=== PATIENT | female | born 1975 | race Caucasian/White ===

== ENCOUNTER 2017-09-25 13:04 | Emergency (ER) | payer OTHER ==
[~2017-09-25] VITALS: Ht 157.4 cm; Wt 81.6 kg
[~2017-09-25 13:04] MED LIST: AMOXICILLIN500 MG PO; ATIVAN1 MG PO; BUSPAR10 MG PO; CIPROFLOXACIN500 MG PO; COLACE100 MG PO; DIFLUCAN150 MG PO; FLAGYL500 MG PO; FLEXERIL10 MG PO; LAMICTAL25 MG PO; LEVAQUIN750 MG PO; NAPROSYN500 MG PO; NKHM; NORCO 325 MG-51 TAB PO; PENICILLIN VK500 MG PO; PREDNICOT20 MG PO; PRILOSEC20 MG PO; TESSALON PERLE200 MG PO; TRAMADOL HCL50 MG PO; ULTRAM50 MG PO; VALIUM10 MG PO; VICODIN 5/500 505 MG PO; VICODIN 500 MG-1 TAB PO; VICODIN ES 7501 TAB PO; VISTARIL50 MG PO; ZYRTEC10 MG PO
[2017-09-25 13:10] VITALS: BP 154/81
[2017-09-25] MEDS ORDERED: AMOXICILLIN500 M2 PO (13:59)
[2017-09-25] MEDS ORDERED: NAPROSYN500 MG PO (13:59)
== END 2017-09-25 14:47 | disposition home or self-care (01) ==
LOC: ED 13:04
DX: K08.89 Other specified disorders of teeth and supporting structures (principal); F17.200 Nicotine dependence, unspecified, uncomplicated

== ENCOUNTER 2018-02-11 19:47 | Emergency (ER) | payer OTHER ==
[~2018-02-11] VITALS: Ht 152.4 cm; Wt 73.0 kg
[~2018-02-11 19:47] MED LIST changes: +AMOXICILLIN500 M2 PO
[2018-02-11 19:50] VITALS: BP 118/53
== END 2018-02-11 21:47 | disposition home or self-care (01) ==
LOC: ED 19:47
DX: M79.671 Pain in right foot (principal); F17.200 Nicotine dependence, unspecified, uncomplicated; Z79.899 Other long term (current) drug therapy

== ENCOUNTER 2018-08-23 08:54 | Emergency (ER) | payer OTHER ==
[~2018-08-23] VITALS: Ht 152.4 cm; Wt 72.6 kg
--- NOTE | ~2018-08-23 | EKG ---
[place], [place] ELECTROCARDIOGRAM REPORT NAME: JEFF QUINTANILLA UNIT #: [id number] ROOM: DOCTOR: EPIPHANY DRAFT REPORT BIRTHDATE: [birth year] [facility] Test Date: 2018-08-23 Test Time: 09:21:46 Pat Name: JEFF QUINTANILLA Department: Room: Gender: F Reporting Analyst: Soledad Herbert : 1975 Requested By: WALT GAO DNP Order Number: [id number] Reading MD: Greg Cherry MD Measurements Intervals [place] Rate: 66 P: 10 OK: 150 QRS: -21 QRSD: 89 T: -18 QT: 407 QTc: 427 Interpretive Statements Sinus rhythm Inferior infarct, age indeterminate Baseline wander in lead(s) V2 Electronically Signed On 08-23-2018 11:26:59 PST by Greg Cherry MD CM:EKGRPT:ELECTROCARDIOGRAM REPORT [id number] WALT GAO DNP EPIPHANY DRAFT REPORT WALT GAO DNP
[2018-08-23 09:30] LABS: BASO % 0.1 % (0.0-1.0); EOS # 0.1 10*3/uL (0.0-0.4); EOS % 0.6 % (1.0-4.0); HEMATOCRIT 44.9 % (37.0-47.0); HEMOGLOBIN 15.1 g/dl (12.0-16.0); LYMPH % 13.9 % (27.0-41.0); MEAN CELL VOLUME 96.1 fl (81.0-99.0); MEAN CORPUSCULAR HGB 32.3 pg (27.0-31.0); MEAN CORPUSCULAR HGB CONC 33.6 g/dl (33.0-37.0); MEAN PLATELET VOLUME 9.6 fl (9.6-12.3); MONO # 0.9 10*3/uL (0.1-1.0); MONO % 6.3 % (3.0-9.0); NEUT # 11.3 10*3/uL (2.3-7.9); NEUT % 78.6 % (47.0-73.0); PLATELET COUNT AUTOMATED 235 10*3/uL (130-400); RED BLOOD COUNT 4.67 10*6/uL (4.10-5.10); RED CELL DISTRI WIDTH 12.6 % (0-14.5); WHITE BLOOD COUNT 14.4 10*3/uL (4.8-10.8)
[2018-08-23 09:44] LABS: ALBUMIN 3.6 gm/dl (3.1-4.5); ALKALINE PHOSPHATASE 65 U/L (45-117); BUN 10 mg/dl (7-24); CHLORIDE 110 mmol/L (98-107); CREATININE 0.86 mg/dL (0.55-1.02); LIPASE 79 U/L (73-393); POTASSIUM 3.5 mmol/L (3.5-5.1); SGOT/AST 12 IU/L (3-35); SODIUM 142 mmol/L (136-145); TOTAL PROTEIN 7.1 gm/dL (6.4-8.2)
[2018-08-23 09:45] LABS: ACT PARTIAL THROMBO TIME 23.7 SECONDS (20.8-31.5)
[2018-08-23 09:47] LABS: SGPT/ALT 19 U/L (12-78)
[2018-08-23 09:50] LABS: TROPONIN I < 0.015 ng/ml (<0.045)
[2018-08-23 09:56] LABS: BILIRUBIN NEGATIVE (NEGATIVE); BLOOD NEGATIVE (NEGATIVE); CLARITY SL CLOUDY (CLEAR); COLOR YELLOW (YELLOW); GLUCOSE NEGATIVE (NEGATIVE); KETONE NEGATIVE (NEGATIVE); LEUKO ESTERASE NEGATIVE (NEGATIVE); NITRITE NEGATIVE (NEGATIVE); SPECIFIC GRAVITY <= 1.005 (1.005-1.030); UROBILINOGEN 0.2 E.U./dl (0.2-1.0)
[2018-08-23 10:47] VITALS: BP 132/68
[2018-08-23] MEDS ORDERED: ZOFRAN4 MG PO (13:06)
[2018-08-23] MEDS ORDERED: ZANTAC 150150 MG PO (13:12)
== END 2018-08-23 13:11 | disposition home or self-care (01) ==
LOC: ED 08:54
PROVIDERS: Nurse Practitioner Family
DX: R11.2 Nausea with vomiting, unspecified (principal); R10.12 Left upper quadrant pain; K21.9 Gastro-esophageal reflux disease without esophagitis; Z90.49 Acquired absence of other specified parts of digestive tract; Z79.899 Other long term (current) drug therapy; F17.200 Nicotine dependence, unspecified, uncomplicated

== ENCOUNTER 2019-03-07 02:02 | Emergency (ER) | payer OTHER ==
[~2019-03-07] VITALS: Ht 157.4 cm; Wt 72.6 kg
--- NOTE | ~2019-03-07 | EKG ---
[place], [place] ELECTROCARDIOGRAM REPORT NAME: JEFF QUINTANILLA UNIT #: [id number] ROOM: DOCTOR: EPIPHANY DRAFT REPORT BIRTHDATE: [birth year] [facility] Test Date: 2019-03-07 Test Time: 02:50:07 Pat Name: JEFF QUINTANILLA Department: Room: Gender: F Occupational Therapist: SS RESP : 1975 Requested By: MIGUELINA MARTINEZ Order Number: [id number] Reading MD: Measurements Intervals [place] Rate: 64 P: 22 [place]: 145 QRS: -21 QRSD: 91 T: -6 QT: 405 QTc: 418 Interpretive Statements Sinus rhythm LVH by voltage Inferior infarct, age indeterminate Baseline wander in lead(s) V1,V2 Compared to ECG 08/23/2018 09:21:46 Left ventricular hypertrophy now present Myocardial infarct finding still present CM:EKGRPT:ELECTROCARDIOGRAM REPORT [id number] MIGUELINA MARTINEZ MD EPIPHANY DRAFT REPORT MIGUELINA MARTINEZ MD
[~2019-03-07 02:02] MED LIST changes: +ZANTAC 150150 MG PO; +ZOFRAN4 MG PO
[2019-03-07 02:48] LABS: BASO % 0.2 % (0.0-1.0); EOS # 0.2 10*3/uL (0.0-0.4); EOS % 1.4 % (1.0-4.0); HEMATOCRIT 42.3 % (37.0-47.0); HEMOGLOBIN 14.2 g/dl (12.0-16.0); LYMPH # 1.7 10*3/uL (1.3-4.4); LYMPH % 12.8 % (27.0-41.0); MEAN CELL VOLUME 101.2 fl (81.0-99.0); MEAN CORPUSCULAR HGB CONC 33.6 g/dl (33.0-37.0); MONO % 7.4 % (3.0-9.0); NEUT % 77.9 % (47.0-73.0); PLATELET COUNT AUTOMATED 236 10*3/uL (130-400); RED BLOOD COUNT 4.18 10*6/uL (4.10-5.10); RED CELL DISTRI WIDTH 12.8 % (0-14.5); WHITE BLOOD COUNT 12.9 10*3/uL (4.8-10.8)
[2019-03-07 02:59] LABS: ACT PARTIAL THROMBO TIME 25.8 SECONDS (20.0-32.1); INTERNATIONAL NORM RATIO 0.9 (2.0-3.5)
[2019-03-07 03:04] LABS: ALBUMIN 3.1 gm/dl (3.1-4.5); ALKALINE PHOSPHATASE 74 U/L (45-117); BUN 12 mg/dl (7-24); CHLORIDE 109 mmol/L (98-107); CREATININE 0.69 mg/dL (0.55-1.02); POTASSIUM 3.5 mmol/L (3.5-5.1); SGOT/AST 13 IU/L (3-35); SGPT/ALT 22 U/L (12-78); SODIUM 142 mmol/L (136-145); TOTAL PROTEIN 6.4 gm/dL (6.4-8.2)
[2019-03-07 03:05] LABS: TROPONIN I < 0.015 ng/ml (<0.045)
[2019-03-07 03:30] VITALS: BP 118/68
== END 2019-03-07 04:00 | disposition short-term general hospital (02) ==
LOC: ED 02:02
PROVIDERS: Emergency Medicine Emergency Medical Services
DX: I63.9 Cerebral infarction, unspecified (principal); Z79.899 Other long term (current) drug therapy; Z90.49 Acquired absence of other specified parts of digestive tract

== ENCOUNTER 2020-05-10 06:22 | Emergency (ER) | payer OTHER ==
[~2020-05-10] VITALS: Ht 160 cm; Wt 70.3 kg
[2020-05-10 06:38] VITALS: BP 107/68
== END 2020-05-10 07:07 | disposition home or self-care (01) ==
LOC: ED 06:22
DX: T78.40XA Allergy, unspecified, initial encounter (principal); Z79.899 Other long term (current) drug therapy; X58.XXXA Exposure to other specified factors, initial encounter

== ENCOUNTER → 2021-10-26 | Outpatient (CLI) | payer OTHER | END | disposition home or self-care (01) | LOC: RAD 09:10 | PROVIDERS: ATTEND Internal Medicine | DX: R68.84 Jaw pain (principal) ==

== ENCOUNTER → 2022-01-25 | Day surgery (SDC) | payer OTHER ==
[2022-01-25] VITALS (7 sets, daily range): BP systolic 125–169; BP diastolic 66–81
[~2022-01-25] VITALS: Ht 154.9 cm; Wt 79.4 kg
[~2022-01-25] MED LIST changes: +ASPIRIN CHEWABL81 MG PO; +HYDROCODONE-AC1 EACH PO; +NEURONTIN100 MG PO; +PRILOSEC20 M1 PO; -PRILOSEC20 MG PO; +SIMVASTATIN40 MG PO; +ZITHROMAX250 MG PO
== END | disposition home or self-care (01) ==
LOC: SDC 01-21 14:00 → EDSTATUS 01-21 14:00 → SDC 03:57
PROVIDERS: ATTEND Specialist
DX: J35.8 Other chronic diseases of tonsils and adenoids (principal); F41.9 Anxiety disorder, unspecified; K21.9 Gastro-esophageal reflux disease without esophagitis; F17.210 Nicotine dependence, cigarettes, uncomplicated

== ENCOUNTER 2022-05-05 20:23 | Emergency (ER) | payer OTHER ==
[~2022-05-05] VITALS: Ht 154.9 cm; Wt 75.7 kg
[2022-05-05] MEDS ORDERED: LEXAPRO20 MG PO (20:30)
[2022-05-05] MEDS ORDERED: OXTELLAR XR300 M1 PO (20:30)
[2022-05-05] MEDS ORDERED: HYDROXYZINE HCL25 MG PO (20:31)
[2022-05-05 22:36] LABS: BASO % 0.1 % (0.0-1.0); EOS # 0.2 10*3/uL (0.0-0.4); HEMATOCRIT 45.3 % (37.0-47.0); LYMPH % 24.2 % (27.0-41.0); MEAN CORPUSCULAR HGB 32.4 pg (27.0-31.0); MEAN CORPUSCULAR HGB CONC 33.8 g/dl (33.0-37.0); MEAN PLATELET VOLUME 9.7 fl (9.6-12.3); MONO # 0.6 10*3/uL (0.1-1.0); MONO % 7.7 % (3.0-9.0); NEUT # 5.4 10*3/uL (2.3-7.9); NEUT % 65.5 % (47.0-73.0); PLATELET COUNT AUTOMATED 257 10*3/uL (130-400); RED BLOOD COUNT 4.72 10*6/uL (4.10-5.10); RED CELL DISTRI WIDTH 12.6 % (0-14.5); WHITE BLOOD COUNT 8.3 10*3/uL (4.8-10.8)
[2022-05-05 22:51] LABS: BILIRUBIN Negative (Negative); BLOOD Negative (Negative); CLARITY Clear (Clear); COLOR Yellow (Yellow); GLUCOSE Negative (Negative); KETONE Negative (Negative); LEUKO ESTERASE Negative (Negative); NITRITE Negative (Negative); PH 5.5 (4.5-8.0); UROBILINOGEN 0.2 E.U./dl (0.0-1.0)
[2022-05-05 22:55] LABS: ACT PARTIAL THROMBO TIME 27.3 SECONDS (20.0-32.1); ALKALINE PHOSPHATASE 93 U/L (45-117); BUN 16 mg/dl (7-24); CHLORIDE 107 mmol/L (98-107); CPK 67 U/L (26-192); CREATININE 0.87 mg/dL (0.55-1.02); POTASSIUM 3.6 mmol/L (3.5-5.1); SGOT/AST 26 IU/L (3-35); SGPT/ALT 44 U/L (12-78); SODIUM 141 mmol/L (136-145)
[2022-05-05 22:57] LABS: RBC 0-2 rbc/hpf (0-2); WBC 0-2 wbc/hpf (0-5)
[2022-05-06 06:01] VITALS: BP 112/71
== END 2022-05-06 06:00 | disposition home or self-care (01) ==
LOC: ED 20:23
PROVIDERS: Emergency Medicine
DX: R51.9 Headache, unspecified (principal); F41.9 Anxiety disorder, unspecified; Z86.73 Personal history of transient ischemic attack (TIA), and cerebral infarction without residual deficits; Z90.49 Acquired absence of other specified parts of digestive tract; Z98.51 Tubal ligation status; Z79.82 Long term (current) use of aspirin; Z79.899 Other long term (current) drug therapy